=== PATIENT | female | born 1950 | race Caucasian/White ===

== ENCOUNTER 2021-07-30 10:30 | Outpatient (CLI) | payer MEDICARE, SELFPAY ==
--- NOTE | 2021-07-30 10:33 | ECHO_ITS ---
Patient Info Name: Kim Teran Age: 71 years : 1950 Gender: Female Ht: 61 in Wt: 145 lbs BSA: 1.70 m2 HR: 68 bpm BP: 157 / 101 mmHg Technical Quality: Good Exam Date: 07/30/2021 11:19 AM Exam Location: [facility] Patient Status: Outpatient Admit Date: 07/30/2021 Staff Ordering Physician: Jt Che MD [employer] Professor: Amy Ramos RDCS Attending Provider: Jt Che MD Referring Physician: Yane SOTELO; Exam Type: CA echo doppler color flow Study Info Indications R94.31 - Abnormal electrocardiogram ECG EKG Complete two-dimensional, color flow and Doppler transthoracic echocardiogram is performed. Summary 1. Complete two-dimensional, color flow and Doppler transthoracic echocardiogram is performed. 2. Left ventricular chamber dimension is normal. 3. Left ventricular systolic function is normal, estimated at 55-60%. 4. The left ventricular diastolic function is grade I diastolic dysfunction. 5. E/e' 9 is minimally elevated. 6. Left atrial chamber dimension is mildly enlarged. 7. There is trace mitral valve regurgitation. 8. No pulmonary hypertension, estimated pulmonary arterial systolic pressure is 25 mmHg. Left Ventricle E/e' 9 is minimally elevated. Left ventricular chamber dimension is normal. Left ventricular systolic function is normal, estimated at 55-60%. The left ventricular diastolic function is grade I diastolic dysfunction. Right Ventricle Right ventricular chamber dimension is normal. Right ventricular systolic function is normal. Left Atria Left atrial chamber dimension is mildly enlarged. Right Atria Right atrial chamber dimension is normal. Aortic Valve The aortic valve is trileaflet. There is no aortic valve stenosis. There is no aortic valve regurgitation. Pulmonic Valve There is no pulmonic regurgitation. Mitral Valve There is no mitral valve stenosis. There is trace mitral valve regurgitation. Tricuspid Valve There is no tricuspid valve regurgitation. No pulmonary hypertension, estimated pulmonary arterial systolic pressure is 25 mmHg. Pericardium/Pleural There is no pericardial effusion. Inferior Vena Cava Normal inferior vena cava with >50% collapse upon inspiration consistent with normal right atrial pressure, 5 mmHg. Aorta The aortic root size at the sinus of Valsalva is normal. Left Ventricular Outflow Tract Name Value Normal LVOT 2D LVOT Diameter 2.0 cm LVOT Doppler LVOT Peak Gradient 4 mmHg LVOT Mean Gradient 3 mmHg LVOT VTI 24 cm LVOT VTI/AV VTI Ratio 0.8 LVOT Stroke Volume 73 ml LVOT CO 15.1 l/min LVOT CI 8.9 l/min/m2 Pulmonic Valve Name Value Normal PV Doppler
== END 2021-07-30 10:31 | disposition home or self-care (01) ==
PROVIDERS: PCP Internal Medicine; Visit Provider Internal Medicine
DX: R94.31 Abnormal electrocardiogram [ECG] [EKG] (principal)
CPT/HCPCS: 93306

== ENCOUNTER 2021-10-08 13:09 | Outpatient (CLI) | payer MEDICARE, SELFPAY ==
--- NOTE | ~2021-10-08 | XR_ITS ---
EXAMINATION: XR chest 2V 10/08/2021 14:00 INDICATION: Productive cough PROCEDURE: 2 view chest COMPARISON: No prior studies for comparison. FINDINGS: The lungs are clear. The cardiomediastinal silhouette is within normal limits. There are no pleural effusions. There is no pneumothorax suspected. IMPRESSION: 1: NO ACUTE CARDIOPULMONARY DISEASE. Reviewed, dictated and finalized at location B. [employer]
--- NOTE | ~2021-10-08 | XR_ITS ---
EXAMINATION: XR sinus min 3V DATE: 10/08/2021 14:02 INDICATION: Chronic sinusitis. Left sided sinus pain. TECHNIQUE: 6 views of the paranasal sinuses were obtained. COMPARISON: None. FINDINGS: There is rightward deviation of superior nasal septum. No fracture. The paranasal sinuses a re clear. IMPRESSION: 1. Rightward deviation of superior nasal septum. Reviewed, dictated and finalized at location A. DEVELOPER
== END 2021-10-08 13:10 | disposition home or self-care (01) ==
LOC: ANHLAB 13:24
PROVIDERS: PCP Internal Medicine; Visit Provider Internal Medicine
DX: R05.9 Cough, unspecified (principal); J32.9 Chronic sinusitis, unspecified; J34.2 Deviated nasal septum
CPT/HCPCS: 70220; 71046; 87081

== ENCOUNTER 2022-06-07 09:59 | Outpatient (CLI) | payer MEDICARE, SELFPAY ==
[2022-06-07 10:28] LABS: Basophils Absolute Auto 0.1 K/mm3 (0.0-0.1); Eosinophils Absolute Auto 0.3 K/mm3 (0-0.3); Eosinophils Percent Auto 4.2 % (0-4.4); Hematocrit 41.1 % (37.0-47.0); Hemoglobin 13.3 g/dL (12.0-15.0); Immature Granulocyte Absolute 0.02 K/mm3 (0.00-0.031); Immature Granulocyte Percent A 0.3 % (0-0.5); Lymphocytes Absolute Auto 1.78 K/mm3 (0.9-3.2); Lymphocytes Percent Auto 24.3 % (18.3-44.2); Mean Corpuscular HGB Conc 32.4 g/dl (32-36); Mean Corpuscular Hemoglobin 30.4 pg (26-34); Mean Corpuscular Volume 94.1 fl (80-100); Mean Platelet Volume 9.3 fl (7.4-10.4); Monocytes Absolute Auto 0.8 K/mm3 (0.1-0.6); Monocytes Percent Auto 10.2 % (2.6-8.5); Neutrophils Absolute Auto 4.4 K/mm3 (1.3-6.7); Platelet Count Result 351 k/mm3 (150-375); Red Blood Count 4.37 M/mm3 (4.2-5.4); Red Cell Distribution Width 12.8 % (11.5-14.5); White Blood Count 7.3 K/mm3 (4.5-10.0)
[2022-06-07 10:34] LABS: Anion Gap 10 mmol/L (8-16); Blood Urea Nitrogen 16 mg/dL (7-17); Calcium 9.1 mg/dL (8.4-10.2); Carbon Dioxide 26 mmol/L (22-30); Chloride 106 mmol/L (98-107); Estimated Glomerular Filt Rate > 60; Glucose 110 mg/dL (65-110); Potassium 4.1 mmol/L (3.4-5.0); Sodium 142 mmol/L (137-145)
== END 2022-06-07 10:00 | disposition home or self-care (01) ==
LOC: ANHLAB 10:02
PROVIDERS: PCP Internal Medicine; Visit Provider Internal Medicine
DX: R03.1 Nonspecific low blood-pressure reading (principal)
CPT/HCPCS: 36415; 80048; 85025

== ENCOUNTER 2024-01-12 10:51 | Outpatient (CLI) | payer MEDICARE, SELFPAY ==
[2024-01-12 11:32] LABS: Prothrombin Time 13.2 Seconds (11.1-14.7)
[2024-01-12 11:33] LABS: Partial Thromboplastin Time 22.8 SECONDS (22.3-36.8)
== END 2024-01-12 10:52 | disposition home or self-care (01) ==
PROVIDERS: PCP Internal Medicine; Visit Provider Internal Medicine
DX: R79.1 Abnormal coagulation profile (principal)
CPT/HCPCS: 36415; 85610; 85730

== ENCOUNTER 2024-10-04 11:46 | Outpatient (CLI) | payer MEDICARE, SELFPAY ==
--- NOTE | ~2024-10-04 | XR_ITS ---
EXAMINATION: XR lumbar spine 2-3V DATE: 10/04/2024 12:09 INDICATION: Low back pain, unspecified. TECHNIQUE: 3 views of lumbar spine were obtained. COMPARISON: None. FINDINGS: There is 5 degrees levocurvature of lumbar spine. There are bilateral L5 pars defects, like ly chronic. There is 9 mm anterolisthesis of L5 on S1. Vertebral body heights are normal. There is se verely decreased disc height at L5-S1. There is multilevel facet joint osteoarthritis, severe in lowe r lumbar spine. IMPRESSION: 1. Bilateral L5 pars defects with grade 2 anterolisthesis of L5 on S1. 2. Severe lower lumbar spondylosis. Reviewed, dictated and finalized at location A. [employer]
== END 2024-10-04 11:47 | disposition home or self-care (01) ==
PROVIDERS: PCP Internal Medicine; Visit Provider Internal Medicine
DX: M89.78 Major osseous defect, other site (principal); M43.17 Spondylolisthesis, lumbosacral region; M47.816 Spondylosis without myelopathy or radiculopathy, lumbar region
CPT/HCPCS: 72100